=== PATIENT | male | born 1940 | race African-American/Black ===

== ENCOUNTER 2022-01-07 18:06 | Inpatient (IN) | payer MEDICAID, OTHER ==
[~2022-01-07] VITALS: Ht 190.5 cm; Wt 137.9 kg
[~2022-01-07 18:06] MED LIST: ALBU90AE INH; APIX5TAB PO; ATOR-2 MT; CARLA24 MT; FURO10VI3 PO; HYDR-4133 PO; LEVO750T46 MT; OXYB5TAB16 PO
[2022-01-07] MEDS ORDERED: LEVETIRACETAM 500MG PREMIX 100 ML IV ONE (23:00)
[2022-01-07] MEDS ORDERED: SODIUM CHLORIDE 0.9% 1,000 ML IV ONE (23:00)
[2022-01-07 23:21] LABS: BASOPHILS % 0.9 % (0.0-2.0); EOSINOPHILS % 2.6 % (0.0-5.0); HEMOGLOBIN. 15.8 g/dL (14.0-18.0); LYMPHOCYTES % 27.6 % (20.0-50.0); MEAN CORPUSCULAR HEMOGLOBIN 30.7 pg (28.0-32.0); MEAN CORPUSCULAR VOLUME 91.4 fL (80.0-94.0); MEAN PLATELET VOLUME 7.1 fl (7.4-10.4); MONOCYTES % 10.7 % (2.0-8.0); NEUTROPHILS % 58.2 % (40.0-76.0); PLATELET 211 x1000/uL (130-400); RED BLOOD CELL COUNT 5.14 mill/uL (4.7-6.1); RED CELL DISTRIBUTION WIDTH 14.4 % (11.6-14.6)
[2022-01-07 23:26] LABS: CHLORIDE 111 mEq/L (98-107)
[2022-01-07 23:37] LABS: CLARITY URINE CLEAR (CLEAR); COLOR URINE YELLOW (YELLOW); KETONES URINE TRACE (NEGATIVE); LEUKOCYTE ESTERASE URINE TRACE (NEGATIVE); NITRITE URINE NEGATIVE (NEGATIVE); OCCULT BLOOD URINE NEGATIVE (NEGATIVE); PROTEIN URINE 1+ (NEGATIVE); SPECIFIC GRAVITY URINE 1.024 (1.005-1.030); UROBILINOGEN URINE 0.2 E.U./dL (0.2-1.0)
[2022-01-08] MEDS ORDERED: VANCOMYCIN 1GM PMX (XELLIA) 200 ML IV NR (03:00)
[2022-01-08] MEDS ORDERED: PIPERACILLIN/TAZ 3.375G PREMIX 50 ML IV NR (03:00)
[2022-01-08 06:00] VITALS: BP 96/64
[2022-01-08 08:02] VITALS: BP 118/91
[2022-01-08] MEDS ORDERED: ONDANSETRON HCL 4MG/2ML INJ IV PRN (08:30)
[2022-01-08] MEDS ORDERED: ACETAMINOPHEN 325MG TABLET PO PRN (08:30)
[2022-01-08] MEDS: ENOXAPARIN 30MG/0.3ML SYR SUBCUT SCH ×2 (10:06→21:44)
[2022-01-08] MEDS: LEVETIRACETAM 500MG TABLET PO SCH ×2 (10:06→21:43)
[2022-01-08] MEDS: ASPIRIN 81MG TABLET PO SCH (10:06)
[2022-01-08 10:38] VITALS: BP 118/91
[2022-01-08 12:03] VITALS: BP 121/73
[2022-01-08] MEDS ORDERED: CHOL400D7 PO (12:57)
[2022-01-08] MEDS ORDERED: ASCO250T22 MT (12:57)
[2022-01-08] MEDS ORDERED: CLON0.5T4 PO (12:57)
[2022-01-08] MEDS ORDERED: APIX2.5T MT (12:57)
[2022-01-08] MEDS ORDERED: FURO40TA5 MT (12:57)
[2022-01-08] MEDS ORDERED: SACU1TAB7 MT (12:57)
[2022-01-08 16:30] VITALS: BP 108/65
[2022-01-08 20:00] VITALS: BP 95/50
[2022-01-09] VITALS: BP 102/52
[2022-01-09 04:00] VITALS: BP 108/54
[2022-01-09 07:56] VITALS: BP 112/79
[2022-01-09] MEDS: LEVETIRACETAM 500MG TABLET PO SCH ×2 (09:17→20:55)
[2022-01-09] MEDS: ASPIRIN 81MG TABLET PO SCH (09:17)
[2022-01-09] MEDS: ENOXAPARIN 30MG/0.3ML SYR SUBCUT SCH ×2 (09:18→20:55)
[2022-01-09 11:45] VITALS: BP 103/75
[2022-01-09 15:48] VITALS: BP 138/94
[2022-01-09 20:00] VITALS: BP 103/75
[2022-01-10] VITALS: BP 95/68
[2022-01-10 04:00] VITALS: BP 120/68
[2022-01-10 08:18] VITALS: BP 120/91
[2022-01-10] MEDS: ASPIRIN 81MG TABLET PO SCH (09:12)
[2022-01-10] MEDS: ENOXAPARIN 30MG/0.3ML SYR SUBCUT SCH (09:12)
[2022-01-10] MEDS: LEVETIRACETAM 500MG TABLET PO SCH (09:12)
[2022-01-10] MEDS ORDERED: LEVE1000 MT (11:33)
[2022-01-10 12:00] VITALS: BP 130/85
[2022-01-10] MEDS ORDERED: DILTIAZEM HCL 30MG TABLET PO SCH (12:00)
[2022-01-10] MEDS ORDERED: FUROSEMIDE 40MG/4ML VIAL IVP SCH (12:26)
[2022-01-10 13:08] VITALS: BP 130/85
[2022-01-10] MEDS ORDERED: APIXABAN 5 MG TABLET PO SCH (17:00)
[2022-01-10] MEDS ORDERED: CARVEDILOL 3.125 MG TABLET PO SCH (21:00)
[2022-01-11] MEDS ORDERED: LOSARTAN POTASSIUM 25 MG TABLET PO SCH (09:00)
== END 2022-01-10 15:19 | disposition home or self-care (01) | DRG 53 ==
LOC: ER 18:06 → 6WST 01-08 03:26 → EDBEDREQTM 01-08 03:35 → EDBEDREQ 01-08 03:35 → ENRESERV 01-08 03:53
PROVIDERS: ADMIT Internal Medicine; ATTEND Internal Medicine
DX: G40.909 Epilepsy, unspecified, not intractable, without status epilepticus (principal); N17.0 Acute kidney failure with tubular necrosis; J18.9 Pneumonia, unspecified organism; I42.9 Cardiomyopathy, unspecified; E44.1 Mild protein-calorie malnutrition; E66.2 Morbid (severe) obesity with alveolar hypoventilation; I48.0 Paroxysmal atrial fibrillation; K59.00 Constipation, unspecified; E87.5 Hyperkalemia; I10 Essential (primary) hypertension; E78.00 Pure hypercholesterolemia, unspecified; Z20.822 Contact with and (suspected) exposure to COVID-19; G62.9 Polyneuropathy, unspecified; Z79.84 Long term (current) use of oral hypoglycemic drugs; Z79.899 Other long term (current) drug therapy; Z79.2 Long term (current) use of antibiotics; Z95.0 Presence of cardiac pacemaker; Z68.38 Body mass index [BMI] 38.0-38.9, adult; Z85.46 Personal history of malignant neoplasm of prostate; Z82.49 Family history of ischemic heart disease and other diseases of the circulatory system
CPT/HCPCS: 36415; 71045; 80053; 80165; 81003; 83605; 84145; 84484; 85025; 87426; 93005; 97162; 99285; J1650; J1940; J1953; J3370; J7030